=== PATIENT | female | born 1980 | race Two or more races ===

== ENCOUNTER 2017-01-30 22:47 | Emergency (ER) | payer SELFPAY ==
[~2017-01-30] VITALS: Ht 154.9 cm; Wt 76.2 kg
--- NOTE | 2017-01-30 23:22 | PHYS DOC ---
Adult General Chief Complaint Chief Complaint: ABDOMINAL PAIN HPI HPI Patient is a 36 year old female who presents with urinary frequency urgency and dysuria, left flank radiating to left upper quadrant pain 4 days. Symptoms finger progressively currently rated moderate. Patient reports nausea and vomiting particularly after eating. Previous cholecystectomy. No fevers chills or sweats. No constipation or diarrhea. Last menstrual period 3 weeks ago. [] Review of Systems Review of Systems ROS as per HPI. All other ROS are negative. [] All other systems were reviewed and found to be within normal limits, except as documented in this note. Current Medications Current Medications Current Medications Medications (Trade) Dose Ordered Sig/Mau Start Time Stop Time Status Last Admin Dose Admin Ceftriaxone Sodium 50 ml @ 100 mls/hr 1X ONCE 01/31/17 00:30 01/31/17 00:59 DC 01/31/17 00:59 100 MLS/HR Fentanyl Citrate (Fentanyl 2ml Vial) 50 mcg 1X ONCE 01/31/17 02:00 01/31/17 02:01 DC 01/31/17 02:00 50 MCG Ketorolac Tromethamine (Toradol) 30 mg 1X ONCE 01/31/17 00:30 01/31/17 00:31 DC 01/31/17 00:59 30 MG Ondansetron HCl (Zofran) 4 mg 1X ONCE 01/30/17 23:45 01/30/17 23:46 DC 01/30/17 23:43 4 MG Sodium Chloride 1,000 ml @ 1,000 mls/hr 1X ONCE 01/30/17 23:45 01/31/17 00:44 DC 01/30/17 23:43 1,000 MLS/HR Allergies Allergies Allergies Coded Allergies Type Severity Reaction Last Updated Verified No Known Drug Allergies 01/30/17 No Physical Exam Physical Exam Constitutional: Well developed, well nourished, no acute distress, non-toxic appearance. [] HENT: Normocephalic, atraumatic, bilateral external ears normal, oropharynx moist, no oral exudates, nose normal. [] Eyes: PERRLA, EOMI, conjunctiva normal, no discharge. [] Neck: Normal range of motion, no tenderness, supple, no stridor. [] Cardiovascular:Heart rate regular rhythm, no murmur [] Lungs & Thorax: Bilateral breath sounds clear to auscultation [] Abdomen: Bowel sounds normal, soft, no tenderness, no masses, no pulsatile masses. [] Skin: Warm, dry, no erythema, no rash. [] Back: No tenderness, no CVA tenderness. [] Extremities: No tenderness, no cyanosis, no clubbing, ROM intact, no edema. [] Neurologic: Alert and oriented X 3, normal motor function, normal sensory function, no focal deficits noted. [] Psychologic: Affect normal, judgement normal, mood normal. [] Current Patient Data Vital Signs Vital Signs Date Time Temp Pulse Resp B/P (MAP) Pulse Ox O2 Delivery O2 Flow Rate FiO2 01/31/17 02:00 54 99 Room Air 01/31/17 01:30 97/59 (72) 01/30/17 23:05 98.7 18 98.7 Lab Values Laboratory Tests Test 01/30/17 22:53 01/30/17 23:15 Urine Collection Type Unknown Urine Color Yellow Urine Clarity Clear Urine pH 5.5 Urine Specific Wilson 1.010 Urine Protein Negative mg/dL (NEG-TRACE) Urine Glucose (UA) Negative mg/dL (NEG) Urine Ketones (Stick) Negative mg/dL (NEG) Urine Blood Moderate (NEG) Urine Nitrite Negative (NEG) Urine Bilirubin Negative (NEG) Urine Urobilinogen Dipstick 0.2 mg/dL (0.2 mg/dL) Urine Leukocyte Esterase Moderate (NEG) Urine RBC 3-5 /HPF (0-2) Urine WBC >40 /HPF (0-4) Urine Squamous Epithelial Cells Mod /LPF Urine Bacteria Moderate /HPF (0-FEW) Urine Test Negative (NEG) White Blood Count 9.2 x10^3/uL (4.0-11.0) Red Blood Count 4.36 x10^6/uL (3.50-5.40) Hemoglobin 13.8 g/dL (12.0-15.5) Hematocrit 40.8 % (36.0-47.0) Mean Corpuscular Volume 93 fL (79-100) Mean Corpuscular Hemoglobin 32 pg (25-35) Mean Corpuscular Hemoglobin Concent 34 g/dL (31-37) Red Cell Distribution Width 12.1 % (11.5-14.5) Platelet Count 315 x10^3/uL (140-400) Neutrophils (%) (Auto) 60 % (31-73) Lymphocytes (%) (Auto) 30 % (24-48) Monocytes (%) (Auto) 9 % (0-9) Eosinophils (%) (Auto) 1 % (0-3) Basophils (%) (Auto) 1 % (0-3) Neutrophils # (Auto) 5.5 x10^3uL (1.8-7.7) Lymphocytes # (Auto) 2.7 x10^3/uL (1.0-4.8) Monocytes # (Auto) 0.8 x10^3/uL (0.0-1.1) Eosinophils # (Auto) 0.1 x10^3/uL (0.0-0.7) Basophils # (Auto) 0.1 x10^3/uL (0.0-0.2) Sodium Level 142 mmol/L (136-145) Potassium Level 3.7 mmol/L (3.5-5.1) Chloride Level 105 mmol/L (98-107) Carbon Dioxide Level 22 mmol/L (21-32) Anion Gap 15 (6-14) H Blood Urea Nitrogen 17 mg/dL (7-20) Creatinine 0.6 mg/dL (0.6-1.0) Estimated GFR (Cockcroft-Gault) 112.5 BUN/Creatinine Ratio 28 (6-20) H Glucose Level 99 mg/dL (70-99) Calcium Level 9.6 mg/dL (8.5-10.1) Total Bilirubin 0.2 mg/dL (0.2-1.0) Aspartate Amino Transferase (AST) 25 U/L (15-37) Alanine Aminotransferase (ALT) 60 U/L (14-59) H Alkaline Phosphatase 84 U/L (46-116) Total Protein 8.3 g/dL (6.4-8.2) H Albumin 4.1 g/dL (3.4-5.0) Albumin/Globulin Ratio 1.0 (1.0-1.7) Lipase 159 U/L (73-393) Laboratory Tests 01/30/17 23:15 Laboratory Tests 01/30/17 23:15 EKG EKG [] Radiology/Procedures Radiology/Procedures [Abdomen pelvis: 5 mm distal Left ureteral stone present.] Course & Med Decision Making Course & Med Decision Making Pertinent Labs and Imaging studies reviewed. (See chart for details) [Pain significantly improved with treatment. Patient given first dose of antibiotics and IV fluids. Instructions are to the pain medication and antiemetics and antibiotics at home, take Flomax and strain urine for stone and follow-up with PCP. Return precautions reviewed. Patient verbalizes understanding agreement with discharge instructions prior to departure.] Dragon Disclaimer Dragon Disclaimer This electronic medical record was generated, in whole or in part, using a voice recognition dictation system. Departure Departure Impression: Primary Impression: Left ureter dilated Additional Impression: Urinary tract infection Disposition: HOME, SELF-CARE Condition: GOOD Referrals: UNKNOWN PCP NAME (PCP) Problem Qualifiers MARGARITA FRANCO DO Jan 30, 2017 23:22
[2017-01-30 23:23] LABS: BASO # 0.1 x10^3/uL (0.0-0.2); BASO % 1 % (0-3); EOS % 1 % (0-3); HEMATOCRIT 40.8 % (36.0-47.0); HEMOGLOBIN 13.8 g/dL (12.0-15.5); LYMPH # 2.7 x10^3/uL (1.0-4.8); LYMPH % 30 % (24-48); MEAN CORPUSCULAR HEMOGLOBIN 32 pg (25-35); MEAN CORPUSCULAR HGB CONC 34 g/dL (31-37); MEAN CORPUSCULAR VOLUME 93 fL (79-100); MONO % 9 % (0-9); NEUT % 60 % (31-73); PLATELET COUNT 315 x10^3/uL (140-400); RED BLOOD COUNT 4.36 x10^6/uL (3.50-5.40); RED CELL DISTRIBUTION WIDTH 12.1 % (11.5-14.5); WHITE BLOOD COUNT 9.2 x10^3/uL (4.0-11.0)
[2017-01-30 23:24] LABS: BILIRUBIN,URINE NEGATIVE (NEG); GLUCOSE,URINE NEGATIVE (NEG); NITRITE,URINE NEGATIVE (NEG); PH,URINE 5.5; PROTEIN,URINE NEGATIVE (NEG-TRACE); UROBILINOGEN,URINE 0.2 mg/dL (0.2 mg/dL)
[2017-01-30 23:29] LABS: BACTERIA,URINE MODERATE /HPF (0-FEW); SQUAMOUS EPITHELIAL CELL,UR MOD /LPF; WBC,URINE >40 /HPF (0-4)
[2017-01-30 23:32] LABS: CALCIUM 9.6 mg/dL (8.5-10.1); CREATININE 0.6 mg/dL (0.6-1.0); GFR 112.5; POTASSIUM 3.7 mmol/L (3.5-5.1)
[2017-01-30 23:39] LABS: ALBUMIN 4.1 g/dL (3.4-5.0); TOTAL BILIRUBIN 0.2 mg/dL (0.2-1.0); TOTAL PROTEIN 8.3 g/dL (6.4-8.2)
[2017-01-30] MEDS ORDERED: IV NORMAL SALINE 1000ML BAG 1,000 ML IV ONE (23:45)
[2017-01-30] MEDS ORDERED: ONDANSETRON PF 4 MG/2 ML VIAL. IV ONE (23:45)
[2017-01-30] MEDS ORDERED: fentaNYL PF VIAL 100 MCG/2 ML VIAL IV ONE (23:45)
[2017-01-31] MEDS ORDERED: KETOROLAC 30 MG/ML INJ. IV ONE (00:30)
[2017-01-31 00:32] LABS: NEG OBC UR NEG; POS OBC UR POS
--- NOTE | 2017-01-31 01:11 | RAD ---
CT scan of the abdomen and pelvis without contrast 01/31/2017 CLINICAL HISTORY: Left flank pain. TECHNIQUE: Unenhanced, contiguous, 2 mm axial sections were obtained through the abdomen and pelvis. One or more of the following individualized dose reduction techniques were utilized for this study: 1. Automated exposure control. 2. Adjustment of the mA and/or kV according to patient size. 3. Use of iterative reconstruction technique. Findings: Images through the lung bases demonstrate minimal dependent subsegmental atelectasis bilaterally. The liver, spleen, pancreas, and adrenal glands are within normal limits. No focal abnormality right kidney is seen. A 4 mm nonobstructing calculus is seen involving the superior/midpole of the left kidney. The left kidney is mildly enlarged. Mild dilatation of the left intrarenal collecting system is seen. The left ureter is mildly dilated throughout its course. Within the distal left ureter at the level of the left UVJ a 5 mm distal left ureteral calculus is seen. It is causing mild obstruction of the left collecting system. A 6 mm fat-containing nodule is seen involving the lower pole of the left kidney consistent with an angiomyolipoma. The abdominal aorta tapers normally. Surgical clips are seen within the gallbladder fossa consistent with a cholecystectomy. No free fluid or free air is within the abdomen. There is no evidence of bowel structure. The appendix is well-visualized and is within normal limits. Images through the pelvis demonstrate the urinary bladder distended with urine. A 2.2 cm rounded low-attenuation structure is seen in the left ovary which likely represents a dominant follicle. No free fluid is seen. Minimal S-shaped curvature of the thoracolumbar spine is noted. IMPRESSION: 5 mm distal left ureteral calculus is seen within the left UVJ which is causing mild obstruction of the left collecting system. Electronically signed by: Nimesh Michael MD (01/31/2017 1:08 AM) [id number]
[2017-01-31 01:30] VITALS: BP 97/59
[2017-01-31] MEDS ORDERED: fentaNYL PF VIAL 100 MCG/2 ML VIAL IV ONE (02:00)
== END 2017-01-31 02:09 | disposition home or self-care (01) ==
LOC: ER 22:47
DX: N39.0 Urinary tract infection, site not specified (principal); N28.82 Megaloureter; Z90.49 Acquired absence of other specified parts of digestive tract
CPT/HCPCS: 36415; 74176; 80053; 81001; 81025; 83690; 85025; 87086; 96361; 96365; 96375; 96376; 99285; J0690; J1885; J2405; J3010; J7030